=== PATIENT | female | born 1975 | race Caucasian/White ===

== ENCOUNTER 2017-04-12 16:24 | Emergency (ER) | payer OTHER ==
[~2017-04-12] VITALS: Ht 167.6 cm; Wt 68.2 kg
[~2017-04-12 16:24] MED LIST: CLON0.2T PO; IBUP800T28 PO; LOPE2TAB32 PO; LORA2TAB PO; NAPR500T PO; ONDA8TAB10 PO
[2017-04-12 16:27] VITALS: BP 119/75; PULSE 58; RESP 16; O2SAT 100
--- NOTE | 2017-04-12 16:38 | ED.REPORT ---
HPI-Abd Pain F Under 42 Date of Service Apr 12, 2017 ED Provider: Hema Curran MD Patient is a 41 year old female with a history of herpes without medication treatment who presents to the ED complaining of constant left lower quadrant abdominal pain for the past two months. Associated symptoms include pain that radiates into the left flank and back, fever, chills, nausea, headache, urinary frequency and intermittent diarrhea. She also states that she has had intermittent blood streaks in her stool. Patient denies dysuria. The patient reports that her pain has been worsening, which prompted her to come to the ED. Nursing Notes Stated Complaint: SHARP PAINS IN LOWER LEFT QUADRANT Chief Complaint: Female Abdominal Pain Nursing Notes Reviewed: Yes Allergies: Coded Allergies: Penicillins (Verified Allergy, Severe, 09/20/16) latex (Verified Allergy, Intermediate, Rash, 09/20/16) No Active Prescriptions or Reported Meds General Time Seen by MD: 16:37 Chief Complaint Abdominal pain Hx Obtained From: Patient Arrived By: Walk-in Sudden in Onset?: No Onset Occurred: More than a week ago... (2 months) Symptom Duration: Constant Progression since Onset: Rapidly worsening Location: : LLQ Quality: Painful, Sharp Radiation: : Back: Flank left Severity: Current: Moderate Associated with: Reports: Chills, Fever, Nausea, Urinary frequency Recent Healthcare: No recent doctor visit, No recent hospitalization Similar Sx Previous: Yes Past Medical History Past Medical History Heroin abuse Chronic back pain Anxiety Past Surgical History none reported Smoking History Current Every Day Smoker Social History Alcohol Use: Denies alcohol use Drug Use: Other Other Social History: Good social support Ambulatory Status Independent Review of Systems Constitutional: Reports: Chills, Fever Respiratory: Denies: Non-productive cough, Shortness of breath GI: Reports: Abdominal pain, Diarrhea, Hematochezia, Nausea Female: Reports: Flank pain, Urinary frequency, Urinary urgency, Denies: Dysuria Musculoskeletal: Reports: Back pain Complete sys rev & neg: except as marked. Neurologic: Reports: Headache Physical Exam Initial Vital Signs Vital Signs (First) Date Time Temp Pulse Resp B/P Pulse Ox O2 Delivery O2 Flow Rate FiO2 04/12/17 16:27 36.6 58 16 119/75 100 Room Air Initial VS: Reviewed General/Constitutional: Awake, Alert, No acute distress Respiratory / Chest: Atraumatic, Breath sounds NL, Breath sounds = bilat, No respiratory distress Cardiovascular: Heart rate NL, Regular rhythm, Heart sounds NL, No gallop, No murmurs, No rubs Abdomen: Atraumatic, Soft, No palpable mass Tenderness/Guarding/Rebound: Positive: Tender LLQ... Back: Atraumatic, Full range of motion left CVA tenderness Head / Eyes: Atraumatic, Normocephalic, PERRL, EOMI Skin: Atraumatic, Color NL, No rash, Warm, Dry Female Genitourinary: Mower Sharpener present, Atraumatic, External genitalia NL, No cervical motion tend, No adnexal mass normal cervix left adnexal tenderness Rectum / Perineum: Atraumatic guiacic negative Neurologic: Oriented X3, Speech NL, No motor deficits, No sensory deficits Psychiatric: Affect NL, Mood NL Interpretation & Diagnostics Lab Results Interpretation Result Diagram: 04/12/17 1720 04/12/17 1720 Test 04/12/17 17:10 04/12/17 17:20 04/12/17 18:01 Urine Color Yellow (YELLOW) Urine Appearance Clear (CLEAR,HAZY) Urine pH 5.5 (5.0-8.0) Urine Specific [place] 1.025 (1.003-1.035) Urine Protein Negativemg/dL (NEG,TRACE) Urine Glucose (UA) Negativemg/dL (NEGATIVE) Urine Ketones Negativemg/dL (NEGATIVE) Urine Occult Blood Negative (NEGATIVE) Urine Nitrite Negative (NEGATIVE) Urine Bilirubin Negative (NEGATIVE) Urine Urobilinogen Normalmg/dL (NORMAL) Urine Leukocyte Esterase Negative (NEGATIVE) Urine RBC 0-2/hpf (0-2) Urine WBC 0-5/hpf (0-5) Urine Epithelial Cells Occasional/hpf (NONE-MOD) Urine Crystals None seen (NONE SEEN) Urine Bacteria None/hpf (NONE-FEW) Urine Hyaline Casts None/lpf (NONE) Urine Granular Casts None seen (NONE SEEN) Urine Waxy Casts None seen (NONE SEEN) Urine Red Blood Cell Casts None seen (NONE SEEN) Urine White Blood Cell Casts None seen (NONE SEEN) Urine Mucus None seen (None Seen) Urine Trichomonas None seen (NONE SEEN) Urine Yeast None (NONE SEEN) Urinalysis Comment None Urine Culture Reflexed Not indicated White Blood Count 8.1th/mm3 (3.8-10.1) Red Blood Count 4.13mil/mm3 (3.90-5.20) Hemoglobin 12.2g/dL (12.0-15.6) Hematocrit 35.9% (35.0-46.0) Mean Corpuscular Volume 86.9fL (81-100) Mean Corpuscular Hemoglobin 29.5pg (27.0-35.0) Mean Corpuscular Hemoglobin Concent 34.0% (32.0-37.0) Red Cell Distribution Width 12.5% (12.3-15.4) Platelet Count 174bil/L (150-400) Neutrophils (%) (Auto) 66.9% (40-74) Lymphocytes (%) (Auto) 23.6% (14-46) Monocytes (%) (Auto) 7.2% (4-12) Eosinophils (%) (Auto) 1.9% (0-5) Basophils (%) (Auto) 0.2% (0-3) Sodium Level 138mEq/L (134-144) Potassium Level 4.1mEq/L (3.5-5.2) Chloride Level 102mEq/L (97-108) Carbon Dioxide Level 24mmol/L (18-29) Blood Urea Nitrogen 14mg/dL (6-20) Creatinine 0.71mg/dL (0.57-1.00) Estimat Glomerular Filtration Rate 131mL/min (>59) Glucose Level 94mg/dL (60-99) Calcium Level 9.4mg/dL (8.5-10.1) Magnesium Level 1.7mg/dL (1.6-2.6) Total Bilirubin 0.9mg/dL (0.0-1.2) Aspartate Amino Transf (AST/SGOT) 21U/L (0-50) Alanine Aminotransferase (ALT/SGPT) 10U/L (0-32) Alkaline Phosphatase 50U/L (25-150) Total Protein 7.3g/dL (6.4-8.4) Albumin 4.2g/dL (3.4-5.0) Lipase 20U/L (13-60) Lab Results Interpretation: urine preg: neg vaginal wet prep neg CT Abd / Pelvis Interpretation IMPRESSION: 1. Multiple calcific densities in the lower pelvis the majority which likely represent phleboliths. Superimposed distal left ureteral stone cannot be excluded. 2. No hydronephrosis. 3. No dilated loops of bowel. 4. No free fluid or air. US Focused non-OB Pelvis terus is sonographically normal. 2. Small complex right adnexal cyst possibly representing hemorrhagic cyst. 3. Small simple left paraovarian cyst. 4. No evidence of adnexal torsion. Please note intermittent torsion cannot be excluded by ultrasound. 5. Small amount of nonspecific free pelvic fluid. Re-Eval/Medical Decision Re-Evaluation/Progress : Time of Eval: 18:09 Patient Status: Mild relief Discharge & Departure Departure Notes Patient left prior to DC instructions. Called her and gave verbally at 2021 Primary Impression: Left flank pain Discharge Condition All VS Reviewed: Yes Condition: Stable Additional Instructions: Emergency department evaluation today included interview examination labs ultrasound and CT of abdomen and pelvis. No serious cause for pelvic and flank pain is identified. It is felt very unlikely that there is a kidney stone present, we noted a small simple ovarian cyst on the left side which should not be causing chronic symptoms and evaluation is otherwise reassuring. May use ibuprofen 600 mg every 6-8 hours as needed for pain. Contact [facility] see resident[facility] s clinic or [facility] to establish primary care for further evaluation of this. Return emergency Department for increasing pain fevers or other new symptoms. Referrals: [facility] Salomon Attestation Portions of this note were transcribed by Cesia Lehman. I, Dr. Curran personally performed the history, physical exam and medical decision-making; I reviewed and confirmed the accuracy of the information in the transcribed note. Signed by: Salomon Velazquez, 04/12/17 and [id number] copies to: [facility] Hema Curran MD Apr 12, 2017 16:38 Wanda Lehman Apr 12, 2017 16:41
[2017-04-12 17:38] LABS: BASOPHILS % (AUTO) 0.2 % (0-3); EOSINOPHILS % (AUTO) 1.9 % (0-5); MONOCYTES % (AUTO) 7.2 % (4-12); Mean Corpuscular Hemoglobin 29.5 pg (27.0-35.0); Mean Corpuscular Volume 86.9 fL (81-100); NEUTROPHILS % (AUTO) 66.9 % (40-74); Platelet Count 174 bil/L (150-400)
[2017-04-12 17:45] LABS: APPEARANCE,URINE CLEAR (CLEAR,HAZY); COLOR,URINE YELLOW (YELLOW); OCCULT BLOOD,URINE NEGATIVE (NEGATIVE); PH,URINE 5.5 (5.0-8.0); UROBILINOGEN,URINE NORMAL (NORMAL)
[2017-04-12 18:02] LABS: Magnesium 1.7 mg/dL (1.6-2.6)
[2017-04-12 19:13] VITALS: BP 112/69; PULSE 59; RESP 14; O2SAT 100
--- NOTE | 2017-04-12 20:12 | DRSVH ---
PROCEDURE: CT KUB ([id number]) INDICATIONS: L flank pain TECHNIQUE: Noncontrast 5 mm thick sections acquired from the diaphragms to the symphysis. 5 mm thick coronal an d sagittal reformats were then performed. For radiation dose reduction, the following was used: aut omated exposure control, adjustment of mA and/or kV according to patient size. COMPARISON: None. FINDINGS: Image quality: Excellent. Lung bases: Lung bases are clear. Heart size is normal. Urinary system: Both kidneys are normal in size. Numerous calcific densities project over the lower pelvis which likely represent phleboliths, however a distal left ureteral stone cannot be completely excluded. No hydronephrosis or perinephric fat stranding. Both ureters appear non-dilated throughou t their expected courses. Bladder wall thickness is normal; no calcified bladder stones. Other solid organs: Liver and spleen are normal in size. Gallbladder is within normal limits. Panc reas is normal in contours. No adrenal nodules. Peritoneum and bowel: Unenhanced bowel loops demonstrate normal wall thickness and caliber. No free fluid or air. The appendix is normal. Nodes and vessels: No retroperitoneal or mesenteric adenopathy by size criteria. Aorta and inferior vena cava are normal in caliber. Abdominal wall: No ventral hernias. Pelvis: No free pelvic fluid. No inguinal hernias or adenopathy. 3.9 cm right adnexa region cyst no cece. Bones: No suspicious bony lesions. No vertebral body compression fractures. IMPRESSION: 1. Multiple calcific densities in the lower pelvis the majority which likely represent phleboliths. Superimposed distal left ureteral stone cannot be excluded. 2. No hydronephrosis. 3. No dilated loops of bowel. 4. No free fluid or air. Dictated by: Hyacinth Ferrari MD, PhD on 04/12/2017 at 20:01 Approved by: Hyacinth Ferrari MD, PhD on 04/12/2017 at 20:10
--- NOTE | 2017-04-12 20:17 | DRSVH ---
PROCEDURE: US PELVIC SONOGRAM + TRANSVAGINAL SONOGRAM INDICATIONS: L pelvic pain TECHNIQUE: Real-time scanning was performed of the pelvic organs, with image documentation. Additional endovagi nal scanning was necessary due to incomplete visualization of the adnexal and endometrial structures by transabdominal scanning. COMPARISON: None. FINDINGS: Transabdominal scanning: Limited scanning through the kidneys shows no hydronephrosis. Small amount of free fluid noted in the pelvis and adjacent to the adnexa. Endovaginal scanning: Uterus: Uterus is retroverted Uterus is normal in size at 8.2 x 5.1 x 7.1 cm. The endometrium measu res 12.0 mm in combined thickness. Ovaries: Right adnexa measures 5.3 x 3.2 x 3.5 cm. There is a complex 1.8 x 1.5 x 1.7 cm right adne xal cyst which may represent a hemorrhagic cyst. Color Doppler dilation demonstrates normal vascular flow to the right adnexa. Left adnexa measures 2.7 x 1.5 x 2.9 cm. There is a simple 1.5 x 0.9 x 0 .9 cm left paraovarian cyst. Color Doppler evaluation demonstrates normal vascular flow to left adne xa. IMPRESSION: 1. Uterus is sonographically normal. 2. Small complex right adnexal cyst possibly representing hemorrhagic cyst. 3. Small simple left paraovarian cyst. 4. No evidence of adnexal torsion. Please note intermittent torsion cannot be excluded by ultrasoun d. 5. Small amount of nonspecific free pelvic fluid. Dictated by: Hyacinth Ferrari MD, PhD on 04/12/2017 at 20:13 Approved by: Hyacinth Ferrari MD, PhD on 04/12/2017 at 20:16
== END 2017-04-12 20:18 ==
LOC: SED 16:24
DX: R10.32 Left lower quadrant pain (principal); R35.0 Frequency of micturition; R11.0 Nausea; R51 Headache; R19.7 Diarrhea, unspecified; K92.1 Melena; M54.9 Dorsalgia, unspecified; F17.200 Nicotine dependence, unspecified, uncomplicated; Z88.0 Allergy status to penicillin; R50.9 Fever, unspecified